=== PATIENT | female | born 1940 | race Caucasian/White ===

== ENCOUNTER → 2016-04-15 | Outpatient (CLI) | payer MEDICARE, OTHER | LOC: RAD 15:12 | DX: M81.0 Age-related osteoporosis without current pathological fracture (principal); M85.80 Other specified disorders of bone density and structure, unspecified site ==

== ENCOUNTER → 2016-04-15 | Outpatient (CLI) | payer MEDICARE, OTHER | LOC: MAMMO 15:14 | DX: Z12.31 Encounter for screening mammogram for malignant neoplasm of breast (principal) | CPT/HCPCS: G0202 ==

== ENCOUNTER → 2016-04-30 | Outpatient (CLI) | payer MEDICARE, OTHER | LOC: LAB 08:37 | DX: I10 Essential (primary) hypertension (principal); E78.2 Mixed hyperlipidemia; E11.9 Type 2 diabetes mellitus without complications; M81.0 Age-related osteoporosis without current pathological fracture ==

== ENCOUNTER → 2016-09-03 | Outpatient (CLI) | payer MEDICARE, OTHER | LOC: LAB 08:58 | DX: E11.9 Type 2 diabetes mellitus without complications (principal) ==

== ENCOUNTER → 2017-05-10 | Outpatient (CLI) | payer MEDICARE, OTHER ==
[2017-05-10 09:33] LABS: EOS # 0.2 (0.04-0.40); HEMOGLOBIN 13.2 g/dL (12.5-16.0); LYMPH# 2.1 (1.50-4.00); MEAN CELL VOLUME 96 fl (78-100); MEAN CORPUSCULAR HEMOGLOBIN 31 pg (27-31); MEAN CORPUSCULAR HGB CONC 32 g/dL (33-37); MEAN PLATELET VOLUME 9.9 fl (7.4-10.4); MONO # 0.8 (0.20-0.80); NEU # 4.1 (1.40-6.50); PLATELET COUNT 173 K/mm3 (130-400); RED BLOOD COUNT 4.26 M/mm3 (4.10-5.30); RED CELL DISTRIBUTION WIDTH 13.1 % (11.5-14.5); WHITE BLOOD COUNT 7.3 K/mm3 (4.8-10.8)
[2017-05-10 10:16] LABS: ALBUMIN 3.7 g/dL (3.5-5.0); BUN/CREATININE RATIO 27.5 (6.0-26.0); POTASSIUM 4.1 mmol/L (3.6-5.0); TOTAL BILIRUBIN 0.5 mg/dL (0.2-1.3); TOTAL PROTEIN 6.9 g/dL (6.3-8.2)
[2017-05-10 10:58] LABS: ERYTHROCYTE SEDIMENTATION RATE 10 mm/hr (0-30)
[2017-05-10 11:40] LABS: URINE APPEARANCE CLEAR; URINE BILIRUBIN NEGATIVE (NEGATIVE); URINE BLOOD TRACE (NEGATIVE); URINE COLOR YELLOW; URINE GLUCOSE NEGATIVE (NEGATIVE); URINE KETONE NEGATIVE (NEGATIVE); URINE LEUKOCYTE ESTERASE NEGATIVE (NEGATIVE); URINE NITRATE NEGATIVE (NEGATIVE); URINE PROTEIN(semi-quant) NEGATIVE (NEGATIVE); URINE UROBILINOGEN NORMAL (NORMAL)
[2017-05-11 00:13] LABS: CREATININE OTHER SOURCE 42 mg/dL (())
== END ==
LOC: LAB 09:11
PROVIDERS: Internal Medicine
DX: E11.9 Type 2 diabetes mellitus without complications (principal); M81.0 Age-related osteoporosis without current pathological fracture; I10 Essential (primary) hypertension; Z12.11 Encounter for screening for malignant neoplasm of colon

== ENCOUNTER → 2017-05-26 | Outpatient (CLI) | payer MEDICARE, OTHER | LOC: MAMMO 13:34 | DX: Z12.31 Encounter for screening mammogram for malignant neoplasm of breast (principal) ==

== ENCOUNTER 2017-08-26 14:30 | Outpatient (RCR) | payer MEDICARE, OTHER | END 2017-08-26 15:00 | disposition home or self-care (01) | LOC: PT 14:30 | DX: M25.511 Pain in right shoulder (principal); E11.9 Type 2 diabetes mellitus without complications | CPT/HCPCS: G8985-GP ==

== ENCOUNTER → 2018-05-19 | Outpatient (CLI) | payer MEDICARE, OTHER ==
[2018-05-19 14:03] LABS: EOS # 0.1 (0.04-0.40); EOS % 1.3 % (1.0-5.0); HEMATOCRIT 42.3 % (37.0-47.0); HEMOGLOBIN 13.4 g/dL (12.5-16.0); LYMPH# 2.5 (1.50-4.00); MEAN CELL VOLUME 96 fl (78-100); MEAN CORPUSCULAR HEMOGLOBIN 30 pg (27-31); MEAN CORPUSCULAR HGB CONC 32 g/dL (33-37); MEAN PLATELET VOLUME 10.9 fl (7.4-10.4); NEU # 5.4 (1.40-6.50); PLATELET COUNT 223 K/mm3 (130-400); RED BLOOD COUNT 4.42 M/mm3 (4.10-5.30); RED CELL DISTRIBUTION WIDTH 12.9 % (11.5-14.5)
[2018-05-19 14:16] LABS: ALBUMIN 4.2 g/dL (3.5-5.0); CALCIUM 9.4 mg/dL (8.4-10.2); TOTAL BILIRUBIN 0.5 mg/dL (0.2-1.3); TOTAL PROTEIN 7.5 g/dL (6.3-8.2)
[2018-05-19 19:14] LABS: URINE APPEARANCE CLEAR; URINE COLOR YELLOW
[2018-05-19 19:15] LABS: URINE BILIRUBIN NEGATIVE (NEGATIVE); URINE BLOOD TRACE (NEGATIVE); URINE GLUCOSE NEGATIVE (NEGATIVE); URINE KETONE NEGATIVE (NEGATIVE); URINE LEUKOCYTE ESTERASE NEGATIVE (NEGATIVE); URINE NITRATE NEGATIVE (NEGATIVE); URINE PROTEIN(semi-quant) NEGATIVE (NEGATIVE); URINE UROBILINOGEN NORMAL (NORMAL); URINE WBC 0 /hpf (0-3)
[2018-05-19 19:18] LABS: ERYTHROCYTE SEDIMENTATION RATE 10 mm/hr (0-30)
== END ==
LOC: LAB 10:31
PROVIDERS: Internal Medicine
DX: Z12.11 Encounter for screening for malignant neoplasm of colon (principal); I10 Essential (primary) hypertension; E11.9 Type 2 diabetes mellitus without complications; M81.0 Age-related osteoporosis without current pathological fracture; E78.5 Hyperlipidemia, unspecified; R20.2 Paresthesia of skin

== ENCOUNTER → 2018-06-08 | Outpatient (CLI) | payer MEDICARE, OTHER | LOC: MAMMO 06-01 15:15 | DX: Z12.31 Encounter for screening mammogram for malignant neoplasm of breast (principal) ==

== ENCOUNTER → 2018-06-08 | Outpatient (CLI) | payer MEDICARE, OTHER | LOC: MAMMO 06-01 16:00 → RAD 06-01 16:00 | DX: Z13.820 Encounter for screening for osteoporosis (principal); M85.88 Other specified disorders of bone density and structure, other site ==

== ENCOUNTER → 2019-07-11 | Outpatient (CLI) | payer MEDICARE, OTHER ==
[2019-07-11 11:10] LABS: POTASSIUM 4.1 mmol/L (3.5-5.1)
[2019-07-11 11:11] LABS: ALBUMIN 4.2 g/dL (3.4-4.8)
[2019-07-11 11:12] LABS: CALCIUM 9.7 mg/dL (8.3-10.5)
[2019-07-11 11:13] LABS: TOTAL PROTEIN 7.3 g/dL (6.2-8.1)
[2019-07-11 11:15] LABS: TOTAL BILIRUBIN 0.4 mg/dL (0.2-1.2)
[2019-07-11 11:20] LABS: MAGNESIUM 1.87 mg/dL (1.60-2.60)
[2019-07-11 11:24] LABS: URINE APPEARANCE CLOUDY; URINE BILIRUBIN NEGATIVE (NEGATIVE); URINE BLOOD TRACE (NEGATIVE); URINE COLOR YELLOW; URINE GLUCOSE 50 mg/dL mg/dL (NEGATIVE); URINE KETONE NEGATIVE (NEGATIVE); URINE LEUKOCYTE ESTERASE 1+ (NEGATIVE); URINE NITRATE POSITIVE (NEGATIVE); URINE PROTEIN(semi-quant) NEGATIVE (NEGATIVE); URINE UROBILINOGEN NORMAL (NORMAL)
[2019-07-11 11:35] LABS: EOS # 0.2 (0.04-0.40); EOS % 2.8 % (1.0-5.0); HEMATOCRIT 43.5 % (37.0-47.0); MEAN CELL VOLUME 96 fl (78-100); MEAN CORPUSCULAR HEMOGLOBIN 31 pg (27-31); MEAN CORPUSCULAR HGB CONC 32 g/dL (33-37); MEAN PLATELET VOLUME 10.5 fl (7.4-10.4); MONO # 0.9 (0.20-0.80); NEU # 4.8 (1.40-6.50); PLATELET COUNT 195 K/mm3 (130-400); RED BLOOD COUNT 4.55 M/mm3 (4.10-5.30); RED CELL DISTRIBUTION WIDTH 13.2 % (11.5-14.5); WHITE BLOOD COUNT 7.9 K/mm3 (4.8-10.8)
[2019-07-11 12:35] LABS: ERYTHROCYTE SEDIMENTATION RATE 12 mm/hr (0-30)
[2019-07-11 21:36] LABS: CREATININE OTHER SOURCE 72 mg/dL (())
== END ==
LOC: RAD 10:38
PROVIDERS: Internal Medicine
DX: I08.0 Rheumatic disorders of both mitral and aortic valves (principal)

== ENCOUNTER → 2019-07-13 | Outpatient (CLI) | payer MEDICARE, OTHER | LOC: MAMMO 09:52 | DX: Z12.31 Encounter for screening mammogram for malignant neoplasm of breast (principal) ==

== ENCOUNTER → 2020-05-28 | Outpatient (CLI) | payer MEDICARE, OTHER ==
[~2020-05-28] MED LIST: ATORVASTATIN CA40 MG PO; METFORMIN ER500 MG PO; OLMESARTAN MEDO20 MG PO
[2020-05-28 15:53] LABS: EOS # 0.2 (0.04-0.40); EOS % 2.1 % (1.0-5.0); HEMATOCRIT 41.8 % (37.0-47.0); HEMOGLOBIN 13.4 g/dL (12.5-16.0); LYMPH# 2.2 (1.50-4.00); MEAN CELL VOLUME 97 fl (78-100); MEAN CORPUSCULAR HEMOGLOBIN 31 pg (27-31); MEAN CORPUSCULAR HGB CONC 32 g/dL (33-37); MEAN PLATELET VOLUME 9.4 fl (7.4-10.4); NEU # 4.7 (1.40-6.50); PLATELET COUNT 208 K/mm3 (130-400); RED BLOOD COUNT 4.32 M/mm3 (4.10-5.30); RED CELL DISTRIBUTION WIDTH 13.2 % (11.5-14.5); WHITE BLOOD COUNT 8.1 K/mm3 (4.8-10.8)
[2020-05-28 16:03] LABS: ALBUMIN 4.3 g/dL (3.4-4.8)
[2020-05-28 16:04] LABS: CALCIUM 9.1 mg/dL (8.3-10.5)
[2020-05-28 16:05] LABS: TOTAL PROTEIN 7.3 g/dL (6.2-8.1)
[2020-05-28 16:07] LABS: TOTAL BILIRUBIN 0.5 mg/dL (0.2-1.2)
== END ==
LOC: LAB 15:38
PROVIDERS: Internal Medicine
DX: Z12.11 Encounter for screening for malignant neoplasm of colon (principal); E11.9 Type 2 diabetes mellitus without complications; E78.2 Mixed hyperlipidemia; I10 Essential (primary) hypertension; K90.9 Intestinal malabsorption, unspecified

== ENCOUNTER → 2020-07-10 | Outpatient (CLI) | payer MEDICARE, OTHER | LOC: RAD 12:59 → MAMMO 13:45 | DX: M85.80 Other specified disorders of bone density and structure, unspecified site (principal); M81.0 Age-related osteoporosis without current pathological fracture ==

== ENCOUNTER → 2020-07-10 | Outpatient (CLI) | payer MEDICARE, OTHER | LOC: MAMMO 13:00 | DX: Z12.31 Encounter for screening mammogram for malignant neoplasm of breast (principal) ==

== ENCOUNTER → 2020-11-30 | Outpatient (CLI) | payer MEDICARE, OTHER | LOC: LAB 08:41 | DX: Z20.822 Contact with and (suspected) exposure to COVID-19 (principal) ==

== ENCOUNTER → 2020-12-02 | Outpatient (CLI) | payer MEDICARE, OTHER ==
[2020-12-02] VITALS (8 sets, daily range): BP systolic 112–136; BP diastolic 51–72
[~2020-12-02] VITALS: Ht 157.5 cm; Wt 61.4 kg
== END ==
LOC: AMSURD 12:47
DX: U07.1 COVID-19 (principal)
CPT/HCPCS: M0243; Q0244

== ENCOUNTER → 2021-06-12 | Outpatient (CLI) | payer MEDICARE, OTHER ==
[2021-06-12 10:50] LABS: BASO # 0.03 K/mm3 (0.02-0.10); EOS % 1.4 % (1.0-5.0); HEMOGLOBIN 12.7 g/dL (12.5-16.0); LYMPH# 1.46 K/mm3 (1.50-4.00); MEAN CELL VOLUME 97 fl (78-100); MEAN CORPUSCULAR HEMOGLOBIN 32 pg (27-31); MEAN CORPUSCULAR HGB CONC 33 g/dL (33-37); MEAN PLATELET VOLUME 9.7 fl (7.4-10.4); MONO # 0.63 K/mm3 (0.20-0.80); NEU # 4.92 K/mm3 (1.40-6.50); PLATELET COUNT 194 K/mm3 (130-400); RED BLOOD COUNT 4.03 M/mm3 (4.10-5.30); RED CELL DISTRIBUTION WIDTH 12.9 % (11.5-14.5); WHITE BLOOD COUNT 7.2 K/mm3 (4.8-10.8)
[2021-06-12 11:00] LABS: ALBUMIN 3.7 g/dL (3.4-4.8); POTASSIUM 4.3 mmol/L (3.5-5.1)
[2021-06-12 11:01] LABS: CALCIUM 9.3 mg/dL (8.3-10.5)
[2021-06-12 11:03] LABS: TOTAL PROTEIN 6.1 g/dL (6.2-8.1)
[2021-06-12 11:04] LABS: TOTAL BILIRUBIN 0.3 mg/dL (0.2-1.2)
[2021-06-12 11:09] LABS: MAGNESIUM 1.72 mg/dL (1.60-2.60)
[2021-06-12 11:29] LABS: URINE APPEARANCE CLEAR; URINE COLOR YELLOW; URINE PROTEIN(semi-quant) NEGATIVE (NEGATIVE)
[2021-06-12 11:30] LABS: URINE BILIRUBIN NEGATIVE (NEGATIVE); URINE BLOOD NEGATIVE (NEGATIVE); URINE KETONE NEGATIVE (NEGATIVE); URINE LEUKOCYTE ESTERASE NEGATIVE (NEGATIVE); URINE NITRATE NEGATIVE (NEGATIVE); URINE UROBILINOGEN NORMAL (NORMAL); URINE WBC 0-1 /hpf (0-3)
== END ==
LOC: LAB 10:22
PROVIDERS: Internal Medicine
DX: Z00.00 Encounter for general adult medical examination without abnormal findings (principal); Z12.11 Encounter for screening for malignant neoplasm of colon; Z12.39 Encounter for other screening for malignant neoplasm of breast; U07.1 COVID-19; E11.9 Type 2 diabetes mellitus without complications; E78.2 Mixed hyperlipidemia; I10 Essential (primary) hypertension; K90.9 Intestinal malabsorption, unspecified; N39.41 Urge incontinence; M81.0 Age-related osteoporosis without current pathological fracture

== ENCOUNTER → 2021-09-09 | Outpatient (CLI) | payer MEDICARE, OTHER | LOC: LAB 08:37 | DX: E11.9 Type 2 diabetes mellitus without complications (principal); L57.0 Actinic keratosis ==

== ENCOUNTER → 2023-07-27 | Outpatient (CLI) | payer MEDICARE, OTHER | LOC: LAB 08:00 | DX: Z12.11 Encounter for screening for malignant neoplasm of colon (principal) ==

== ENCOUNTER → 2024-01-18 | Outpatient (CLI) | payer MEDICARE, OTHER | LOC: LAB 10:02 | DX: E11.9 Type 2 diabetes mellitus without complications (principal) ==

== ENCOUNTER → 2024-05-23 | Outpatient (CLI) | payer MEDICARE, OTHER | LOC: LAB 10:06 | DX: E11.9 Type 2 diabetes mellitus without complications (principal) ==